=== PATIENT | female | born 1995 | race Caucasian/White ===

== ENCOUNTER 2023-07-17 13:10 | Emergency (ER) | payer SELFPAY ==
[~2023-07-17] VITALS: Ht 162.6 cm; Wt 86.2 kg
[2023-07-17 13:13] VITALS: BP 100/54; PULSE 86; RESP 20; TEMP 97.1; O2SAT 98
[2023-07-17] MEDS ORDERED: ONDANSETRON 4 MG ODT PO ONE (13:40)
[2023-07-17] MEDS ORDERED: HYDROcodone/APAP 7.5/325 MG 1 TAB PO ONE (13:40)
[2023-07-17] MEDS ORDERED: ACET-8905 PO (14:53)
[2023-07-17] MEDS ORDERED: IBUP-2213 PO (15:06)
[2023-07-17 15:37] VITALS: BP 115/70; PULSE 77; RESP 18; TEMP 98.2; O2SAT 100
== END 2023-07-17 15:37 | disposition home or self-care (01) ==
LOC: MED 13:10
DX: S82.832A Other fracture of upper and lower end of left fibula, initial encounter for closed fracture (principal); Z79.899 Other long term (current) drug therapy; Z79.1 Long term (current) use of non-steroidal anti-inflammatories (NSAID); W18.39XA Other fall on same level, initial encounter; Y92.89 Other specified places as the place of occurrence of the external cause; Y93.89 Activity, other specified; Y99.8 Other external cause status
CPT/HCPCS: 29515; 73610; 81025; 99283; Q0162